=== PATIENT | female | born 1975 | race Two or more races ===

== ENCOUNTER 2016-10-30 19:55 | Emergency (ER) | payer SELFPAY ==
[~2016-10-30] VITALS: Ht 162.6 cm; Wt 78.5 kg
[2016-10-30 20:28] LABS: BILIRUBIN,URINE NEGATIVE (NEG); GLUCOSE,URINE NEGATIVE (NEG); NITRITE,URINE NEGATIVE (NEG); PH,URINE 6.5; PROTEIN,URINE NEGATIVE (NEG-TRACE)
[2016-10-30] MEDS ORDERED: IV NORMAL SALINE 1000ML BAG 1,000 ML IV SCH (20:29)
[2016-10-30] MEDS ORDERED: ONDANSETRON PF 4 MG/2 ML VIAL. IV ONE (20:30)
[2016-10-30] MEDS ORDERED: KETOROLAC TROMETHAMINE 30 MG/ML SYRINGE. IV ONE (20:30)
--- NOTE | 2016-10-30 20:36 | ED.ADGEN ---
Past Medical History Past Medical History: No Pertinent History Past Surgical History: No Surgical History Alcohol Use: None Drug Use: None Adult General Chief Complaint Chief Complaint: ABDOMINAL PAIN HPI HPI Patient is a 40 year old woman, with no significant past medical history, who presents to the emergency department with a 2 day history of fever, headache, body aches, and dysuria. Patient states that she first noted fever yesterday, states her fever has been up to 104 at home. She denies any nausea or vomiting, any lightheadedness or dizziness, any chest pain, shortness breath or respiratory complaints. States that she is experiencing cramping in her lower abdomen, burning with urination, and back pain as well. Last took acetaminophen at home approximately an hour prior to arrival, temperature upon arrival to the ED is 98.9. Denies any similar to previously. Denies any discharge or drainage of the vagina, any concern for STI exposures. No previous surgeries. No diarrhea. Patient is primarily [place]-speaking, interview and examination assisted by language line top cutter. Review of Systems Review of Systems Constitutional: Fevers and chills. Eyes: Denies change in visual acuity. [] HENT: Denies nasal congestion or sore throat. [] Respiratory: Denies cough or shortness of breath. [] Cardiovascular: Denies chest pain or edema. [] GI: Suprapubic lower quadrant abdominal pain, no nausea, vomiting, no diarrhea. : Dysuria, with frequency. Back pain. Musculoskeletal: Denies back pain or joint pain. [] Integument: Denies rash. [] Neurologic: Denies headache, focal weakness or sensory changes. [] Endocrine: Denies polyuria or polydipsia. [] Lymphatic: Denies swollen glands. [] Psychiatric: Denies depression or anxiety. [] Current Medications Current Medications Current Medications Medications (Trade) Dose Ordered Sig/Boubacar Start Time Stop Time Status Last Admin Dose Admin Cephalexin HCl (Keflex) 500 mg 1X ONCE 10/30/16 23:00 10/30/16 23:01 DC 10/30/16 22:40 500 MG Ibuprofen (Motrin) 600 mg 1X ONCE 10/30/16 23:15 10/30/16 23:15 DC 10/30/16 22:57 600 MG Info (Do NOT chart on this entry -- for MONITORING) 1 each PRN DAILY PRN 10/30/16 21:30 10/30/16 23:15 DC Iohexol (Omnipaque 300 Mg/ml) 75 ml 1X ONCE 10/30/16 22:00 10/30/16 22:01 DC 10/30/16 21:36 75 ML Ketorolac Tromethamine (Toradol) 10 mg 1X ONCE 10/30/16 20:30 10/30/16 20:33 DC 10/30/16 20:47 10 MG Morphine Sulfate 4 mg PRN Q15MIN PRN 10/30/16 21:15 10/30/16 23:15 DC Ondansetron HCl (Zofran) 4 mg 1X ONCE 10/30/16 20:30 10/30/16 20:33 DC 10/30/16 20:47 4 MG Phenazopyridine HCl (Pyridium) 200 mg 1X ONCE 10/30/16 23:00 10/30/16 23:01 DC 10/30/16 22:42 200 MG Potassium Chloride (KCl Oral Soln) 40 meq 1X ONCE 10/30/16 23:00 10/30/16 23:01 DC 10/30/16 22:40 40 MEQ Potassium Chloride (Klor-Con) 40 meq 1X ONCE 10/30/16 23:30 10/30/16 23:30 DC Sodium Chloride (Iv Sodium Chloride 0.9% 1000ml Bag) 1,000 ml @ 1,000 mls/hr Q1H 10/30/16 20:29 10/30/16 21:28 DC 10/30/16 20:48 1,000 MLS/HR Allergies Allergies Allergies Coded Allergies Type Severity Reaction Last Updated Verified No Known Drug Allergies 10/30/16 No Physical Exam Physical Exam Constitutional: Well developed, well nourished, no acute distress, non-toxic appearance. [] HENT: Normocephalic, atraumatic, bilateral external ears normal, oropharynx moist, no oral exudates, nose normal. [] Eyes: PERRLA, EOMI, conjunctiva normal, no discharge. [] Neck: Normal range of motion, no tenderness, supple, no stridor. [] Cardiovascular:Heart rate regular rhythm, no murmur, S1, S2, rubs or gallops. [] Lungs & Thorax: Bilateral breath sounds clear to auscultation, no wheezing, rhonchi, rales. No chest tenderness or crepitus. [] Abdomen: Bowel sounds normal, soft, mild tenderness to palpation in the suprapubic region and lower quadrants, no rebound, rigidity, no guarding no masses, no pulsatile masses. [] Skin: Warm, dry, no erythema, no rash. [] Back: Patient with mild tenderness palpation in the paraspinal muscles left and right lumbar region, no CVA tenderness. [] Extremities: No tenderness, no cyanosis, no clubbing, ROM intact, no edema. [] Neurologic: Alert and oriented X 3, normal motor function, normal sensory function, no focal deficits noted. [] Psychologic: Affect normal, judgement normal, mood normal. [] Health examination: Normal-appearing external examination, bimanual exam reveals small out of white discharge in vaginal vault, no adnexal masses or tenderness, no CMT. Speculum examination are unremarkable, patient with specimens taken without issue. Current Patient Data Vital Signs Vital Signs Date Time Temp Pulse Resp B/P Pulse Ox O2 Delivery O2 Flow Rate FiO2 10/30/16 22:50 82 110/66 98 Room Air 10/30/16 20:12 98.6 20 98.6 Lab Values Laboratory Tests Test 10/30/16 19:22 10/30/16 20:00 10/30/16 20:28 POC Urine HCG, Qualitative Hcg negative (Negative) Urine Color Yellow Urine Clarity Cloudy Urine pH 6.5 Urine Specific [place] 1.010 Urine Protein Negativemg/dL (NEG-TRACE) Urine Glucose (UA) Negativemg/dL (NEG) Urine Ketones (Stick) Negativemg/dL (NEG) Urine Blood Negative (NEG) Urine Nitrite Negative (NEG) Urine Bilirubin Negative (NEG) Urine Urobilinogen Dipstick 1.0mg/dL (0.2 mg/dL) Urine Leukocyte Esterase Trace (NEG) Urine RBC Occ/HPF (0-2) Urine WBC 5-10/HPF (0-4) Urine Squamous Epithelial Cells Mod/LPF Urine Bacteria Mod/HPF (0-FEW) White Blood Count 3.7x10^3/uL (4.0-11.0) L Red Blood Count 4.52x10^6/uL (3.50-5.40) Hemoglobin 14.0g/dL (12.0-15.5) Hematocrit 41.9% (36.0-47.0) Mean Corpuscular Volume 93fL (79-100) Mean Corpuscular Hemoglobin 31pg (25-35) Mean Corpuscular Hemoglobin Concent 33g/dL (31-37) Red Cell Distribution Width 13.4% (11.5-14.5) Platelet Count 141x10^3/uL (140-400) Neutrophils (%) (Auto) 79% (31-73) H Lymphocytes (%) (Auto) 16% (24-48) L Monocytes (%) (Auto) 5% (0-9) Eosinophils (%) (Auto) 0% (0-3) Basophils (%) (Auto) 0% (0-3) Neutrophils # (Auto) 2.9x10^3uL (1.8-7.7) Lymphocytes # (Auto) 0.6x10^3/uL (1.0-4.8) L Monocytes # (Auto) 0.2x10^3/uL (0.0-1.1) Eosinophils # (Auto) 0.0x10^3/uL (0.0-0.7) Basophils # (Auto) 0.0x10^3/uL (0.0-0.2) Sodium Level 141mmol/L (136-145) Potassium Level 3.0mmol/L (3.5-5.1) L Chloride Level 106mmol/L (98-107) Carbon Dioxide Level 22mmol/L (21-32) Anion Gap 13 (6-14) Blood Urea Nitrogen 7mg/dL (7-20) Creatinine 0.8mg/dL (0.6-1.0) Estimated GFR (Cockcroft-Gault) 79.0 BUN/Creatinine Ratio 9 (6-20) Glucose Level 136mg/dL (70-99) H Calcium Level 8.4mg/dL (8.5-10.1) L Total Bilirubin 0.3mg/dL (0.2-1.0) Aspartate Amino Transferase (AST) 62U/L (15-37) H Alanine Aminotransferase (ALT) 87U/L (14-59) H Alkaline Phosphatase 123U/L (46-116) H Total Protein 7.0g/dL (6.4-8.2) Albumin 3.5g/dL (3.4-5.0) Albumin/Globulin Ratio 1.0 (1.0-1.7) Laboratory Tests 10/30/16 20:28 Laboratory Tests 10/30/16 20:28 Microbiology 10/30/16 Wet Prep - Final, Complete EKG EKG ECG: Sinus tachycardia, heart rate 109 beats minute, no ectopy. As interpreted by me. ECG: Sinus rhythm, heart rate 80 bpm, no ectopy. As interpreted by me. [] Radiology/Procedures Radiology/Procedures [] [facility] [address] [place] [address] IMAGING REPORT Signed PATIENT: RASHAWN CRUZ ACCOUNT: [id number] : 1975 LOCATION: ER AGE: 40 SEX: F EXAM STATUS: REG ER ORD. PHYSICIAN: BESSIE PICKARD DO REASON: LQ abd pain/fever PROCEDURE: ABD PELV W/ IV CONTRAST ONLY PROCEDURE CT abdomen and pelvis with IV contrast. HISTORY Lower abdominal and back pain with fever and difficulty urinating. TECHNIQUE Axial images and coronal and sagittal re-formatted images are provided. 75 milliliters of intravenous Omnipaque 300 was administered without complication. One or more of the following individualized dose reduction techniques were utilized for this exam: 1. Automated exposure control. 2. Adjustment of the mA and/or kV according to patient's size. 3. Use of iterative reconstruction technique. COMPARISON None. FINDINGS There is dependent atelectasis. There is no pleural effusion. The heart is not enlarged. There is fatty infiltration of the liver. Gallbladder is unremarkable. Spleen is not enlarged. Pancreas and adrenals are unremarkable. Kidneys are symmetrically perfused. Aorta is normal caliber. There is no small bowel obstruction or mural thickening. Normal appendix is visualized. Moderate amount of stool is noted in the colon. The uterus and adnexa are unremarkable. The bladder is unremarkable. There is a probable labial cyst measuring 3 x 2 centimeters. There are mild degenerative changes in the spine. IMPRESSION No acute abdominal findings. Electronically signed by: Ed Carrion MD (Oct 30, 2016 22:13:41) DICTATED and SIGNED BY: ED CARRION MD DATE: 10/30/162212 CC: NEERAJ,BESSIE M DO; NO PCP ~ Course & Med Decision Making Course & Med Decision Making Pertinent Labs and Imaging studies reviewed. (See chart for details) Patient well-appearing. Pelvic examination performed, patient without tenderness in the pelvic region, pain is in the lower abdomen. After discussion with patient, CT of out of pelvis was obtained. Did not reveal any evidence of acutely concerning findings. Patient with no leukocytosis, white count of 3.7 with mild left shift but no bandemia. She with hypokalemia noted with potassium of 3.0. She is not taking any medications, denies any vomiting. Patient's urine noted to have some bacteria and white blood cells, no nitrates. CT, laboratory and examination findings not consistent with pyelonephritis. However, with complaints mainly of frequency and urgency, also dysuria, will treat the urine. She is receiving IV fluids in the ED, was afebrile initially, repeat temperature is 99.3 orally. She did receive ibuprofen orally, along with liquid potassium, Keflex, Pyridium, which she tolerated without issue. Return studies otherwise unremarkable. On reevaluation she states that she is feeling much better at this time, body aches improved, remains afebrile at this time. Blood pressure was initially 120s over 70s, blood pressure did drops some to 90s over 60s,, although her heart rate did improve into the 60s and 70s. Orthostatics performed, patient's blood pressures 101 teens over 60s, pulse rate 70s to low 80s, oxygen saturation 98% on room air, patient denied any dizziness, lightheadedness or other complaints. Lengthy conversation with patient on the language line, regarding the patient's mildly elevated LFTs, need for follow-up , urinary findings, and other evaluation, strongly recommended the patient that she follow-up with a primary care provider when she arrives in her final destination, as she is currently traveling from [place] to [place]. Discussed concerning symptoms that would prompt return to the emergency department for additional evaluation. Discussed dietary recommendations regarding hypokalemia, importance of staying well-hydrated, getting plenty of rest, use supportive measures, and medications as directed. Patient voiced understanding and agreement with plan. Was ambulating in the emergency department without issue, discharged home with her family, with persistent for Keflex, Pyridium, naproxen, and potassium. To follow-up as stated, and to return to the ED for concerning symptoms as discussed. Adriano Disclaimer Ramuon Disclaimer This electronic medical record was generated, in whole or in part, using a voice recognition dictation system. Departure Impression: Primary Impression: Viral illness Additional Impression: Urinary tract infection Disposition: 01 HOME, SELF-CARE Condition: IMPROVED Scripts Potassium Chloride 10 Meq Capsule.er10 Meq PO BID #8 TAB.SR Prov:BESSIE PICKARD DO 10/30/16 Phenazopyridine Hcl (Pyridium)200 Mg [id number] Mg PO TID PRN Dysuria #9 TAB Prov:BESSIE PICKARD DO 10/30/16 Naproxen 250 Mg [id number] Mg PO BID PRN Pain/Fever #10 Prov:BESSIE PICKARD DO 10/30/16 Cephalexin (Keflex)500 Mg Capsule1 Cap PO BID #14 CAP Prov:BESSIE PICKARD DO 10/30/16 Problem Qualifiers BESSIE PICKARD DO Oct 30, 2016 20:36
[2016-10-30 20:37] LABS: BACTERIA,URINE MOD /HPF (0-FEW); RBC,URINE OCC /HPF (0-2); SQUAMOUS EPITHELIAL CELL,UR MOD /LPF
[2016-10-30 20:46] LABS: BASO % 0 % (0-3); EOS % 0 % (0-3); HEMATOCRIT 41.9 % (36.0-47.0); LYMPH # 0.6 x10^3/uL (1.0-4.8); LYMPH % 16 % (24-48); MEAN CORPUSCULAR HEMOGLOBIN 31 pg (25-35); MEAN CORPUSCULAR HGB CONC 33 g/dL (31-37); MEAN CORPUSCULAR VOLUME 93 fL (79-100); MONO % 5 % (0-9); NEUT % 79 % (31-73); PLATELET COUNT 141 x10^3/uL (140-400); RED BLOOD COUNT 4.52 x10^6/uL (3.50-5.40); RED CELL DISTRIBUTION WIDTH 13.4 % (11.5-14.5); WHITE BLOOD COUNT 3.7 x10^3/uL (4.0-11.0)
[2016-10-30 21:01] LABS: ALBUMIN 3.5 g/dL (3.4-5.0); CALCIUM 8.4 mg/dL (8.5-10.1); CREATININE 0.8 mg/dL (0.6-1.0); TOTAL BILIRUBIN 0.3 mg/dL (0.2-1.0)
[2016-10-30] MEDS ORDERED: MORPHINE SULFATE 4 MG/ML DISP.SYRIN. IV/SQ PRN (21:15)
[2016-10-30] MEDS ORDERED: CONTRAST GIVEN MC PRN (21:30)
[2016-10-30] MEDS ORDERED: IOHEXOL 300 MG/ML 75 ML VIAL IV ONE (22:00)
--- NOTE | 2016-10-30 22:15 | RAD ---
PROCEDURE CT abdomen and pelvis with IV contrast. HISTORY Lower abdominal and back pain with fever and difficulty urinating. TECHNIQUE Axial images and coronal and sagittal re-formatted images are provided. 75 milliliters of intravenous Omnipaque 300 was administered without complication. One or more of the following individualized dose reduction techniques were utilized for this exam: 1. Automated exposure control. 2. Adjustment of the mA and/or kV according to patient's size. 3. Use of iterative reconstruction technique. COMPARISON None. FINDINGS There is dependent atelectasis. There is no pleural effusion. The heart is not enlarged. There is fatty infiltration of the liver. Gallbladder is unremarkable. Spleen is not enlarged. Pancreas and adrenals are unremarkable. Kidneys are symmetrically perfused. Aorta is normal caliber. There is no small bowel obstruction or mural thickening. Normal appendix is visualized. Moderate amount of stool is noted in the colon. The uterus and adnexa are unremarkable. The bladder is unremarkable. There is a probable labial cyst measuring 3 x 2 centimeters. There are mild degenerative changes in the spine. IMPRESSION No acute abdominal findings. Electronically signed by: Ed Valente MD (Oct 30, 2016 22:13:41)
[2016-10-30 22:50] VITALS: BP 110/66
[2016-10-30] MEDS ORDERED: PHEN-318 PO (23:00)
[2016-10-30] MEDS ORDERED: PHENAZOPYRIDINE 200 MG TABLET. PO ONE (23:00)
[2016-10-30] MEDS ORDERED: CEPHALEXIN 250 MG CAPSULE PO ONE (23:00)
[2016-10-30] MEDS ORDERED: CEPH-264 PO (23:00)
[2016-10-30] MEDS ORDERED: POTASSIUM CHLORIDE 20 MEQ/15 ML ORAL LIQUID. PO ONE (23:00)
[2016-10-30] MEDS ORDERED: NAPR250T2 PO (23:00)
[2016-10-30] MEDS ORDERED: POTA10CA PO (23:02)
[2016-10-30] MEDS ORDERED: IBUPROFEN 600 MG TABLET. PO ONE (23:15)
[2016-10-30] MEDS ORDERED: POTASSIUM CHLORIDE 20 MEQ TABLET.ER. PO ONE (23:30)
== END 2016-10-30 23:05 | disposition home or self-care (01) ==
LOC: ER 19:55
DX: B34.9 Viral infection, unspecified (principal); N39.0 Urinary tract infection, site not specified; M79.1 Myalgia; R10.30 Lower abdominal pain, unspecified
CPT/HCPCS: 36415; 74177; 80053; 81001; 81025; 85027; 87491; 87591; 96361; 96374; 96375; 99285; J1885; J2405; J7030; Q0111; Q9967